=== PATIENT | male | born 1970 | race Caucasian/White ===

== ENCOUNTER 2022-07-21 09:16 | Emergency (ER) | payer BC ==
[~2022-07-21] VITALS: Ht 193 cm; Wt 113.8 kg
--- NOTE | 2022-07-21 09:43 | ED Integumentary General ---
General Chief Complaint: Skin/Wound Problems Stated Complaint: RT FOOT FOREIGN OBJECT Nursing Triage Note: PT TRIPPED OVER A STICK IN HIS YARD ON THURSDAY AND A LOCUST THORN WENT THROUGH THE TOP OF HIS BOOT. HE HAS PAIN, SWELLING, AND REDNESS TO THE TOP OF THE RIGHT FOOT. Source: patient Exam Limitations: no limitations History of Present Illness Date Seen by Provider: July 21, 2022 Time Seen by Provider: 09:20 Initial Comments 51-year-old male with no pertinent past medical history coming in due to pain in his right foot. He was working, tripped, and a thorn went through his boot on the top right foot on Thursday. When he pulled the boot off, the thorn came out with it. It was painful, but became more red the following day, and worse today now with worsening pain. He states he soaked it in Epsom salt, and got pus out of the wound already. Denies any fever that he knows of or any other concerns. Does not take any blood thinners. Allergies and Home Medications Allergies Coded Allergies: brompheniramine (Verified Allergy, Unknown, 07/21/22) phenylpropanolamine (Verified Allergy, Unknown, 07/21/22) Patient Home Medication List Home Medication List Reviewed: Yes Review of Systems Review of Systems Constitutional: No fever EENTM: no symptoms reported Respiratory: no symptoms reported Cardiovascular: no symptoms reported Gastrointestinal: no symptoms reported Genitourinary: no symptoms reported Musculoskeletal: see HPI Skin: see HPI Psychiatric/Neurological: No Symptoms Reported Past Ynvcrwa-Ghptui-Vflwut Hx Patient Social History Tobacco Use?: Yes Tobacco type used: Cigarettes Smoking Status: Current Everyday Smoker Use of E-Cig and/or Vaping dev: No Substance use?: No Alcohol Use?: No Pt feels they are or have been: No Physical Exam Vital Signs Capillary Refill : Less Than 3 Seconds General Appearance: WD/WN, no apparent distress HEENT: PERRL/EOMI Neck: non-tender, full range of motion Cardiovascular: regular rate, rhythm, no edema, no murmur Respiratory: chest non-tender, lungs clear, normal breath sounds, no respiratory distress, no accessory muscle use Gastrointestinal: No distended Extremities: no pedal edema, no calf tenderness, normal capillary refill, other (Right foot on the top just lateral to the MTP joint is a punctate wound with erythema, he has full range of motion of all toes without pain, can move foot without significant pain, no fluctuance) Neurologic/Psychiatric: no motor/sensory deficits, alert, normal mood/affect Skin: normal color, warm/dry, rash Progress/Results/Core Measures Results/Orders Blood Pressure Mean: 111 Progress Progress Note : Progress Note 51-year-old male with above history coming in after a thorn went through his beltran e into the top of his foot a couple days ago. ABCs were intact and vitals were stable on presentation. Physical exam consistent with cellulitis, there does not appear clinically to be any joint involvement as he is able to move all toes without pain. I did a [id number] ultrasound confirming no joint fluid and no visible abscess or fluid collection that needs drained. It is likely he had an abscess and already drained it. We will put him on typical antibiotics, however given we are dealing with a thor n, we will also cover for Sporothrix and put him on a itraconazole as well. I will have him follow-up with his PCP to see if he needs to continue the itraconazole after a week. I believe he is otherwise stable for discharge with outpatient follow-up. He was sent home with strict return precautions. Departure Impression Primary Impression: Cellulitis Qualified Codes: L03.115 - Cellulitis of right lower limb Additional Impression: Puncture wound Disposition: 01 HOME, SELF-CARE Condition: Stable Departure-Patient Inst. Decision time for Depature: 09:50 Referrals: NO,LOCAL PHYSICIAN (PCP/Family) Primary Care Physician Patient Instructions: Cellulitis (Skin Infection), Adult ED Add. Discharge Instructions: The skin does appear cellulitic and infected. You will be on 2 different antibiotics for the next 10 days. These antibiotics are called doxycycline and cephalexin. He will also be on an antifungal called I terconazole. There is a specific fungus that can grow on the thorns can cause fairly severe infection. Follow-up with your primary doctor for wound check in the next 7 to 10 days, if its not improving they may need to do a longer course of the prescriptions. Typically give the antibiotics roughly 24 to 48 hours to start working before you will notice any significant changes. Scripts Itraconazole (Itraconazole) 10 Mg/Ml Solution 200 MG PO DAILY for 10 Days, #200 ML Prov: KUN NOVAK MD 07/21/22 Cephalexin (Cephalexin) 500 Mg Tablet 500 MG PO QID for 10 Days, #40 TAB Prov: KUN NOVAK MD 07/21/22 Doxycycline Hyclate (Doxycycline Hyclate) 100 Mg Tablet 100 MG PO BID for 10 Days, #20 TAB 0 Refills Prov: KUN NOVAK MD 07/21/22 Work/School Note: Work Release Form Date Seen in the Emergency Department: July 21, 2022 Return to Work: July 22, 2022 Restrictions: No Restrictions KUN NOVAK MD July 21, 2022 09:43
[2022-07-21] MEDS ORDERED: CEPH500T PO (09:46)
[2022-07-21] MEDS ORDERED: ITRA10SO2 PO (09:46)
[2022-07-21] MEDS ORDERED: DOXY100T2 PO (09:46)
[2022-07-21 09:50] VITALS: BP 134/99
== END 2022-07-21 09:52 | disposition home or self-care (01) ==
LOC: ER FS 09:19
DX: S91.331A Puncture wound without foreign body, right foot, initial encounter (principal); L03.115 Cellulitis of right lower limb; F17.210 Nicotine dependence, cigarettes, uncomplicated; W18.40XA Slipping, tripping and stumbling without falling, unspecified, initial encounter; Y92.59 Other trade areas as the place of occurrence of the external cause; Y99.0 Civilian activity done for income or pay
CPT/HCPCS: 99281